=== PATIENT | female | born 1970 | race African-American/Black ===

== ENCOUNTER 2016-10-19 13:06 | Emergency (ER) | payer MEDICAID ==
[~2016-10-19] VITALS: Ht 162.6 cm; Wt 67.1 kg
[2016-10-19 14:36] VITALS: BP 136/89
== END 2016-10-19 15:12 | disposition home or self-care (01) ==
LOC: ER 13:30
DX: J02.9 Acute pharyngitis, unspecified (principal); G89.29 Other chronic pain; M54.5 Low back pain; I10 Essential (primary) hypertension; Z88.6 Allergy status to analgesic agent

== ENCOUNTER 2017-08-26 20:32 | Emergency (ER) | payer MEDICAID ==
[~2017-08-26] VITALS: Ht 165.1 cm; Wt 72.1 kg
[2017-08-26 21:00] VITALS: BP 131/94
[2017-08-26 22:27] LABS: Basophils # (auto) 0 uL; Basophils % (auto) 0.8 % (0.0-2.0); Eosinophils # (auto) 0.2 uL; Eosinophils % (auto) 4.7 % (0.0-7.0); Hematocrit 33.8 % (36.0-46.0); Hemoglobin 10.9 g/dL (12.2-16.2); Lymphocytes # (auto) 2.4 uL; Lymphocytes % (auto) 46.6 % (10.0-50.0); Mean Corpuscular Hemoglobin 28.7 pg (28.0-32.0); Mean Corpuscular Hgb Conc. 32.4 g/dL (32.0-36.0); Mean Corpuscular Volume 88.6 fL (80.0-100.0); Mean Platelet Volume 7.5 fL (6.9-10.8); Monocytes # (auto) 0.5 uL; Monocytes % (auto) 9.3 % (0.0-12.0); Neutrophils % (auto) 38.6 % (37.0-80.0); Nucleated Red Blood Cells % 0.2 %; Platelet Count (auto) 222 10^3/uL (140-450); White Blood Cell 5.1 10^3/uL (4.4-10.8)
[2017-08-26 22:47] LABS: Albumin 3.6 g/dL (3.4-5.0); Potassium 4.3 mmol/L (3.5-5.1)
[2017-08-26 22:49] LABS: BUN/Creatinine Ratio 9.8
[2017-08-26 22:59] LABS: Bilirubin, Total 0.2 mg/dL (0.2-1.0); Total Protein 7.5 g/dL (6.4-8.2)
== END 2017-08-26 23:55 | disposition left against medical advice (07) ==
LOC: ER 20:32
DX: R11.2 Nausea with vomiting, unspecified (principal); M54.9 Dorsalgia, unspecified; Z53.21 Procedure and treatment not carried out due to patient leaving prior to being seen by health care provider
CPT/HCPCS: 36415; 80053; 85025

== ENCOUNTER 2017-08-27 17:48 | Emergency (ER) | payer MEDICAID ==
[~2017-08-27] VITALS: Ht 165.1 cm; Wt 68.0 kg
[2017-08-27 18:04] VITALS: BP 119/84
[2017-08-27 18:33] LABS: Basophils # (auto) 0 uL; Basophils % (auto) 0.8 % (0.0-2.0); Eosinophils # (auto) 0.3 uL; Eosinophils % (auto) 4.7 % (0.0-7.0); Hematocrit 34.5 % (36.0-46.0); Hemoglobin 11.1 g/dL (12.2-16.2); Lymphocytes % (auto) 36.6 % (10.0-50.0); Mean Corpuscular Hemoglobin 28.7 pg (28.0-32.0); Mean Corpuscular Hgb Conc. 32.2 g/dL (32.0-36.0); Mean Corpuscular Volume 89.3 fL (80.0-100.0); Monocytes # (auto) 0.5 uL; Monocytes % (auto) 9.7 % (0.0-12.0); Neutrophils # (auto) 2.7 uL; Neutrophils % (auto) 48.2 % (37.0-80.0); Nucleated Red Blood Cells % 0.1 %; Platelet Count (auto) 227 10^3/uL (140-450); Red Cell Distribution Width 13.3 % (11.8-14.3); White Blood Cell 5.5 10^3/uL (4.4-10.8)
[2017-08-27 18:55] LABS: Albumin 3.4 g/dL (3.4-5.0); BUN/Creatinine Ratio 10.3; Calcium 7.6 mg/dL (8.5-10.1); Potassium 4.5 mmol/L (3.5-5.1)
[2017-08-27 18:58] LABS: Bilirubin, Total 0.1 mg/dL (0.2-1.0); Total Protein 7.4 g/dL (6.4-8.2)
== END 2017-08-27 22:10 | disposition left against medical advice (07) ==
LOC: ER 17:53
DX: R11.2 Nausea with vomiting, unspecified (principal); R51 Headache; Z53.21 Procedure and treatment not carried out due to patient leaving prior to being seen by health care provider
CPT/HCPCS: 36415; 80053; 85025

== ENCOUNTER 2017-08-28 13:15 | Inpatient (IN) | payer MEDICAID ==
[~2017-08-28] VITALS: Ht 165.1 cm; Wt 71.0 kg
[2017-08-28 14:27] LABS: Basophils # (auto) 0.1 uL; Basophils % (auto) 2.1 % (0.0-2.0); Eosinophils # (auto) 0.2 uL; Eosinophils % (auto) 5.5 % (0.0-7.0); Hematocrit 37.5 % (36.0-46.0); Hemoglobin 11.9 g/dL (12.2-16.2); Lymphocytes # (auto) 1.4 uL; Lymphocytes % (auto) 35.6 % (10.0-50.0); Mean Corpuscular Hgb Conc. 31.7 g/dL (32.0-36.0); Mean Corpuscular Volume 91.6 fL (80.0-100.0); Mean Platelet Volume 7.7 fL (6.9-10.8); Monocytes # (auto) 0.3 uL; Monocytes % (auto) 7.3 % (0.0-12.0); Neutrophils # (auto) 1.9 uL; Neutrophils % (auto) 49.5 % (37.0-80.0); Nucleated Red Blood Cells % 0.2 %; Platelet Count (auto) 240 10^3/uL (140-450); Red Cell Distribution Width 13.9 % (11.8-14.3); White Blood Cell 3.9 10^3/uL (4.4-10.8)
[2017-08-28 14:38] LABS: Albumin 3.5 g/dL (3.4-5.0); BUN/Creatinine Ratio 11.9; Bilirubin, Total 0.3 mg/dL (0.2-1.0); Calcium 7.8 mg/dL (8.5-10.1); Potassium 4.3 mmol/L (3.5-5.1); Total Protein 7.3 g/dL (6.4-8.2)
[2017-08-28 19:50] LABS: Urine Bilirubin Negative (Negative); Urine Blood Negative /uL (Negative); Urine Color Colorless (Yellow); Urine Glucose Normal (Normal); Urine Ketone Negative (Negative); Urine Nitrite Negative (Negative); Urine RBC 2 /hpf (0 - 4); Urine Squamous Epithelial Cell MOD /hpf (<5); Urine Urobilinogen Normal (Negative)
[2017-08-28] MEDS ORDERED: HYDROcodone-ACET 5/325MG TAB PO PRN (21:15)
[2017-08-28] MEDS ORDERED: ONDANSETRON HCL 4 MG/2 ML VIAL IV PRN (21:15)
[2017-08-28] MEDS ORDERED: ACETAMINOPHEN 325 MG TAB PO PRN (21:15)
[2017-08-28] MEDS ORDERED: TEMAZEPAM 15 MG CAP PO PRN (21:15)
[2017-08-28] MEDS ORDERED: HYDROcodone-ACET 5/325MG TAB ONE (21:59)
[2017-08-28] MEDS: METOPROLOL TARTRATE 25 MG TAB PO SCH (22:08)
[2017-08-28] MEDS: TOPIRAMATE 100 MG TAB PO SCH (22:13)
[2017-08-28 23:07] VITALS: BP 138/94
[2017-08-28 23:27] VITALS: BP 138/94
[2017-08-29 05:08] VITALS: BP 121/72
[2017-08-29 06:07] LABS: Basophils # (auto) 0 uL; Basophils % (auto) 0.6 % (0.0-2.0); Eosinophils # (auto) 0.2 uL; Eosinophils % (auto) 4.2 % (0.0-7.0); Hematocrit 35.7 % (36.0-46.0); Hemoglobin 11.5 g/dL (12.2-16.2); Lymphocytes # (auto) 1.1 uL; Lymphocytes % (auto) 27.3 % (10.0-50.0); Mean Corpuscular Hemoglobin 28.8 pg (28.0-32.0); Mean Corpuscular Hgb Conc. 32.2 g/dL (32.0-36.0); Mean Corpuscular Volume 89.2 fL (80.0-100.0); Mean Platelet Volume 7.8 fL (6.9-10.8); Monocytes # (auto) 0.5 uL; Monocytes % (auto) 11.4 % (0.0-12.0); Neutrophils # (auto) 2.3 uL; Neutrophils % (auto) 56.5 % (37.0-80.0); Nucleated Red Blood Cells % 0.1 %; Platelet Count (auto) 191 10^3/uL (140-450); Red Cell Distribution Width 13.4 % (11.8-14.3); White Blood Cell 4.1 10^3/uL (4.4-10.8)
[2017-08-29] MEDS ORDERED: ALPR1TAB2 PO (06:56)
[2017-08-29] MEDS ORDERED: LOSA100T27 PO (06:56)
[2017-08-29] MEDS ORDERED: TRAM50TA2 PO (06:56)
[2017-08-29] MEDS ORDERED: BACL10TA PO (06:56)
[2017-08-29] MEDS ORDERED: FERROUS SULFATE 325 MG TAB PO SCH (08:00)
[2017-08-29 08:24] LABS: Albumin 3.5 g/dL (3.4-5.0); BUN/Creatinine Ratio 12.2; Bilirubin, Total 0.5 mg/dL (0.2-1.0); Potassium 4.4 mmol/L (3.5-5.1); Total Protein 7.2 g/dL (6.4-8.2)
[2017-08-29 09:00] VITALS: BP 127/79
[2017-08-29] MEDS ORDERED: cefTRIAXone 1GM/50ML D5W 50 ML IV SCH (09:00)
[2017-08-29] MEDS ORDERED: FLUoxetine HCL 20 MG CAP PO SCH (10:00)
[2017-08-29] MEDS ORDERED: ENOXAPARIN SOD 30 MG/0.3 ML SYRINGE SC SCH (10:00)
[2017-08-29] MEDS ORDERED: PANTOPRAZOLE 40 MG TAB PO SCH (10:00)
[2017-08-29] MEDS: METOPROLOL TARTRATE 25 MG TAB PO SCH (12:56)
[2017-08-29] MEDS: TOPIRAMATE 100 MG TAB PO SCH (12:57)
== END 2017-08-29 16:20 | disposition left against medical advice (07) | DRG 463 ==
LOC: ER 13:24 → OVERFLOW 13:25 → EAST 22:23
PROVIDERS: ADMIT Nurse Practitioner; ATTEND Internal Medicine
DX: N39.0 Urinary tract infection, site not specified (principal); N17.9 Acute kidney failure, unspecified; D70.9 Neutropenia, unspecified; I12.0 Hypertensive chronic kidney disease with stage 5 chronic kidney disease or end stage renal disease; N18.5 Chronic kidney disease, stage 5; D63.8 Anemia in other chronic diseases classified elsewhere; M54.5 Low back pain; Z53.21 Procedure and treatment not carried out due to patient leaving prior to being seen by health care provider; Z88.5 Allergy status to narcotic agent; Z88.8 Allergy status to other drugs, medicaments and biological substances; Z82.49 Family history of ischemic heart disease and other diseases of the circulatory system; Z90.49 Acquired absence of other specified parts of digestive tract
CPT/HCPCS: 36415; 71010; 76775; 80053; 80307; 81001; 85025; 87086; 93005; 94761; 96365; J0696